=== PATIENT | female | born 1990 | race Caucasian/White ===

== ENCOUNTER 2022-02-27 19:21 | Emergency (ER) | payer OTHER ==
[2022-02-27 19:36] VITALS: BP 95/61; PULSE 87; RESP 16; TEMP 98.3
[2022-02-28] MEDS ORDERED: IBUPROFEN 600 MG TABLET (FP) PO ONE ×2 (00:49→01:05)
== END 2022-02-28 01:23 | disposition home or self-care (01) ==
LOC: JERFT 19:21 → JER 19:21
DX: N61.1 Abscess of the breast and nipple (principal)
CPT/HCPCS: 87070; 87205; 99283-25